=== PATIENT | male | born 1960 | race Caucasian/White ===

== ENCOUNTER → 2018-02-02 | Outpatient (CLI) | payer BC ==
[~2018-02-02] VITALS: Ht 180.3 cm; Wt 108.9 kg
[~2018-02-02] MED LIST: IBUPROFEN 800800 M1 PO; PROTONIX 20 MG20 M1 PO
--- NOTE | ~2018-02-02 | HPC ---
[facility] [place] [address] PAIN MANAGEMENT CONSULTATION Name: LATONIA ORTEGA Room #: REG [facility] Lasha#: [id number] Admission: 02/02/18 Attend Phys: Joce Anders MD Discharge: Date of : 58 Report #: [id number] THIS REPORT FOR: //name// CC: Jorge Anders DATE OF SERVICE: 02/02/2018 PRIMARY CARE PHYSICIAN: Jorge Moreira M.D. CHIEF COMPLAINT: Pain in the neck, arm, and wrist. FOLLOWUP HISTORY: The patient is a 57-year-old gentleman who has been referred to the Pain Clinic for evaluation of chronic pain, which has been going on for a number of years. Notes that this pain involves his hands, numbness and tingling. This often wakes him from sleep. He describes it as a stabbing pain in his hands. He describes it is 9/10 at this point. Notes that this causes problems with activities of daily living such as driving, holding the phone and finds that the right side is more problematic than the left. Notes that when he leans his head to the left that he can experience more pain and discomfort on the right side, sometimes appreciate a coolness radiating down into his hands. The pain often awakens him at night, a number of times. The patient states that he has been seen by orthopedic surgeon. There is some consideration of carpal tunnel syndrome and possibility of nerve entrapment up in his elbows. Describes pain in both hands, pain in his wrists and forearms, discomfort in his fingers, primarily in the fourth and fifth fingers, but also in his second and third fingers. He has experienced discomfort while driving, riding as well as reclining on his back. Notes the pain improves somewhat when he is standing, walking, changes his head from one side to the other. The patient states that he and his family members have Knvrymj-Bghkl-Uefts disease. He also has noted some episodes of left foot drop. States that if he sits with his leg in a mgpoww-db-yzsh position that he can experience worsening of the foot drop on the left side. May take weeks to months to improve and does note some loss of balance. Has some decreased hearing and wears hearing aids. ALLERGIES: No known drug allergies. CURRENT MEDICATIONS: Protonix 20 mg daily, ibuprofen 800 mg q. 8 hours p.r.n. MEDICATIONS USED IN THE PAST: Gabapentin 100 mg 2 tablets at bedtime, Valtrex 500 mg p.r.n. Prednisone 10 mg titration. PAST MEDICAL HISTORY: 1. Ioshjkt-Eiqnn-Rsbic - neuropathy. [facility] [address] [place] [address] PAIN MANAGEMENT CONSULTATION Name: LATONIA ORTEGA Room #: REG EZRA Colby#: [id number] Admission: 02/02/18 Attend Phys: Joce Anders MD Discharge: Date of : 58 Report #: [id number] 2. Hearing loss. 3. Depression. 4. Elevated liver enzymes. 5. Right and left wrist pain. 6. Cervical radiculopathy. 7. Genital herpes. PAST SURGICAL HISTORY: Cholecystectomy in 1979, sinus surgery in 1984. 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 He is working at this juncture. He is . FAMILY HISTORY: Cervical cancer, maternal grandmother, lung cancer, maternal grandmother. Kidney cancer, maternal aunt. Other family members with Ytesufr-Jyvyi-Aarox. REVIEW OF SYSTEMS: A 14-point review of systems: GENERAL: Good health, some weight changes, fatigue, weakness, wears glasses, decreased hearing, wears hearing aids, lightheadedness, numbness and tingling sensation, memory loss, confusion. PAIN CLINIC ASSESSMENT: The patient states he is not being treated for osteoarthritis or rheumatoid arthritis. Height 5 feet 11 inches, weight 240 pounds, BMI is 33. VITAL SIGNS: Blood pressure 130/78, pulse 60, respiratory rate 20, room air saturations 100%. Pain intensity 9/10. Fall risk. The patient has not fallen in the last 3 months. Does not need assistance with walking. Blood thinner. The patient is not on a blood thinner. History of hypertension. The patient is not being treated for hypertension. Opioid therapy greater than 6 weeks. The patient is not on opioid contract. Risk assessment tool. Functional assessment tool 36/70 showing moderate impact on activities of daily living from pain. Recreational drug use. Denies ever using recreational drugs. Tobacco: The patient denies smoking tobacco. Alcohol: The patient drinks about 5 alcoholic beverages per week. LABORATORY: EMG, motor nerve conduction/sensory conduction study indicates numbness and family history of Gslvoux-Sjhpo-Jvhxh disease. 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 As the [facility] [address] [place] [address] PAIN MANAGEMENT CONSULTATION Name: LATONIA ORTEGA Room #: REG CLDave Colby#: [id number] Admission: 02/02/18 Attend Phys: Joce Anders MD Discharge: Date of : 58 Report #: [id number] median nerve is out of portion to the ulnar, there is likely superimposed bilateral median neuropathy at the wrist (carpal tunnel syndrome), but the degree of abnormality is strictly from each cannot be out. There is also evidence of primary subacute bilateral C6 radiculopathies with the right side being somewhat more affected than the left. Examination of the cervical spine dated 05/12/2007 revealed alignment is within normal limits. There is mild loss of disk height at C5-C6 and C6-C7. Facet joints are maintained. No evidence of significant central spinal or neural foraminal stenosis. Soft tissue along the apices are unremarkable. IMPRESSION: Early/mild degenerative disk disease at C5/C6. MRI of the cervical spine dated 12/01/2017 revealed: 1. C5/C6, small posterior disk osteophyte complex. Mild uncinate and facet arthropathy. Minimal spinal canal stenosis. Mild right neural foraminal stenosis. 2. C6-C7, small posterior disk osteophyte complex. Mild facet and uncinate arthropathy. Minimal spinal canal stenosis. Mild left neural foraminal stenosis. 3. C7/T1, small posterior disk osteophyte complex. Mild facet and uncinate arthropathy. Minimal spinal canal stenosis. Mild bilateral neural foraminal stenosis. CT of the abdomen 06/2017, no CT evidence of pancreatic mass. No acute intraabdominal findings. PHYSICAL EXAMINATION: GENERAL: The patient is a well-developed white male, appears stated age. Orientation: The patient is alert and oriented x 3. Affect: The patient's affect is appropriate. Speech is fluent. The patient has some decreased auditory acuity and is wearing bilateral hearing aids. HEENT: Normocephalic, atraumatic, decreased auditory acuity. Sclerae nonicteric. Extraocular eye muscles intact. Mucous membranes are moist. NECK: Without adenopathy or bruits. Range of motion. Left lateral bending right lateral bending can cause some increased pain and discomfort in the contralateral arm. Left and right lateral rotation slightly limited, but not as problematic note some stiffness in the upper neck area. Cervical extension and flexion are not as problematic with pain radiating down into his arms. HEART: Regular rate, normal S1, S2, without murmurs. CHEST: Clear to auscultation without rales or rhonchi. ABDOMEN: Nontender, without organomegaly. MUSCULOSKELETAL: Without significant kyphosis, scoliosis or lordosis. EXTREMITIES: Upper extremity, the patient complains of pain and discomfort involving his right and left hand. Notes worsening of pain with radiation of pain down into his right hand when he tilts his head to the left. Complains of some numbness and tingling down in the area of his fingers involving the thumb, index and middle finger. Also complains of some discomfort in the area of his elbow as well as the ring and little finger on the right. Notes pain on the [facility] [address] [place] [address] PAIN MANAGEMENT CONSULTATION Name: LATONIA ORTEGA Room #: REG CLDave Colby#: [id number] Admission: 02/02/18 Attend Phys: Joce Anders MD Discharge: Date of : 58 Report #: [id number] left side in the ring and little finger as well as the index and middle finger. Note some pain in the area of his right wrist. 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 Capillary refill of approximately 1 second. Deep tendon reflexes are difficult to appreciate, left and right secondary to the patient's inability to comply. Lower extremity muscle strength judged to be 5/5 for the major muscle groups of the lower extremity. Difficult to appreciate patellar reflex and ankle reflex in the lower extremities. The patient is not having it now, but states that he has had in the past left foot drop. He is able to stand on his toes to rock on to his heels, but does find that he lose his balance quite easily. ASSESSMENT: 1. Findings consistent with cervical radiculopathy with EMG findings indicating subacute bilateral C6 radiculopathy. 2. Bilateral hand pain with symptomatology consistent with carpal tunnel syndrome. 3. History of Uhmgwbl-Urhyj-Frxqf disease. 4. History of depression, which is improved. RECOMMENDATIONS: We discussed treatment options with the patient. There were some findings consistent with cervical radiculopathy. At this juncture his pain etiology is somewhat overlapping. At this juncture, I think it would be reasonable to proceed with a cervical epidural steroid injection to see how much of his pain is secondary to cervical radiculopathy. A model was used to indicate the area of probable pathology. We discussed in detail the findings of his MRI. We will consult his insurance carrier. After which precertification is granted, we will proceed with a cervical epidural steroid injection. Risks and benefits of the procedure were explained. They include but are not limited to infection, increased muscle soreness, headache, bleeding, nerve damage, spinal headache. The patient elects to proceed. He will return to the Pain Clinic after precertification has been granted and undergo a cervical epidural steroid injection. We would like to thank you for letting us participate in his care. We hope he continues to improve. <ELECTRONICALLY SIGNED> By: Joce Anders MD 02/04/18 0815 [id number] Joce Anders MD /[facility]
[2018-02-02 08:12] VITALS: BP 130/78
== END ==
LOC: PAIN 06:56
DX: M79.603 Pain in arm, unspecified (principal); M25.539 Pain in unspecified wrist; M54.12 Radiculopathy, cervical region

== ENCOUNTER → 2018-02-04 | Outpatient (CLI) | payer BC ==
[~2018-02-04] VITALS: Ht 180.3 cm; Wt 112.1 kg
--- NOTE | ~2018-02-04 | HPC ---
[facility] [place] [address] PAIN MANAGEMENT CONSULTATION Name: LATONIA ORTEGA Room #: REG Dave Lasha#: [id number] Admission: 02/04/18 Attend Phys: Joce Anders MD Discharge: Date of : 58 Report #: [id number] THIS REPORT FOR: //name// CC: Jorge Anders DATE OF SERVICE: 02/04/2018 PRIMARY CARE PHYSICIAN: Jorge Moreira M.D. CHIEF COMPLAINT: Neck and arm pain on both sides. HISTORY OF PRESENT ILLNESS: The patient is a 57-year-old gentleman who has been seen in the Pain Clinic because of cervical radiculopathy. We have contacted his insurer which is [employer]. They have given him the ability to undergo a cervical epidural steroid injection today. He has followed up in the Pain Clinic for this service. As you may recall, he has pain and discomfort involving his hands with numbness and tingling. This often wakes him from his sleep. He describes a stabbing pain down into his hands, at this point to 9/10. He also has problems with activity of daily living such as driving, holding a phone and looking to his right side, which is more problematic than looking to the left. Pain often times awakens him at night. There is some consideration as to whether or not carpal tunnel surgery or other surgeries might be warranted. He has returned today for an epidural steroid injection and noticed efficacy on his pain control. ALLERGIES: No known drug allergies. CURRENT MEDICATIONS: Protonix 20 mg, Motrin 800 mg q. 8 hours p.r.n. PAIN CLINIC ASSESSMENT: The patient is not being treated for osteoarthritis or rheumatoid arthritis. Height 5 feet 11 inches, weight 247 pounds, BMI is 34. VITAL SIGNS: Blood pressure 125/79, pulse 60, respiratory rate 16, room air saturation is 98%. Pain Intensity 1. Fall risk. The patient has not fallen in the last 3 months. Blood thinners. The patient is not on a blood thinner. History of hypertension. The patient is not being treated for hypertension. Opioid therapy greater than 6 weeks. The patient is not on an opioid contract. Risk assessment tool. The patient is not on opioid medications. Functional assessment tool. Recreational drug use. The patient has never used recreational drugs. Tobacco. The patient has never smoked. Alcohol. The patient drinks 4-5 [place] [address] PAIN MANAGEMENT CONSULTATION Name: LATONIA ORTEGA [facility] [id number] Admission: 02/04/18 Attend Phys: Joce Anders MD Discharge: Date of : 58 Report #: [id number] PHYSICAL EXAMINATION: GENERAL: The patient is a well-developed, well-nourished white male. He appears his stated age. He is alert and oriented x 3. Affect is appropriate. Speech is fluent. He has some decreased auditory acuity and he is wearing bilateral hearing aids. HEENT: Normocephalic, atraumatic. Extraocular eye muscles intact. Sclerae nonicteric. Mucous membranes are moist. NECK: Without adenopathy or bruits. Range of motion somewhat limited, left lateral bending, right lateral bending cause some increased pain and discomfort in the contralateral arm. Left and right lateral rotation cause some slight limitation. Cervical extension and flexion are not as problematic with pain, which radiates down into his arms. HEART: Regular rate with normal S1, S2, without murmurs. CHEST: Clear to auscultation without rales or rhonchi. ABDOMEN: Nontender, without organomegaly. MUSCULOSKELETAL: Without significant kyphosis, scoliosis or lordosis. EXTREMITIES: Upper extremities, the patient complains of pain and discomfort involving the right and left hand. Notes worsening of the pain with radiation down into his right hand when he tilts his head to the left. Complains of some numbness and tingling down into the areas of his fingers involving the thumb, index and middle finger. There is also complains of discomfort in the area of his elbow as well as in the area of the ring and little finger on the right hand. The patient has some pain and discomfort in his right wrist. Deep tendon reflexes are difficult to appreciate secondary to the patient's inability to comply during the procedure. IMPRESSION: 1. Cervical findings consistent with cervical radiculopathy and EMG findings indicating subacute bilateral C6 radiculopathy. 2. Bilateral hand pain with symptomatology consistent with carpal tunnel syndrome. 3. History of Fbmnwlk-Xtfmn-Pryvn disease. 4. History of depression, which has improved. RECOMMENDATIONS: We discussed treatment option with the patient. Risks and benefits of a cervical epidural steroid injection were again reviewed. Possible complication of the procedure were discussed. They include but are not limited to infection, increased muscle soreness, headache, bleeding, paresis, spinal headache and the patient elects to proceed. PROCEDURE NOTE: The patient was placed in the prone position. Fluoroscopy was used to identify the C7-T1 interspace using fluoroscopy with the AP view as well as a lateral view. This area had been sterilely prepped with Betadine. A 0.25% bupivacaine was infiltrated into this area. A total of 120 mg triamcinolone was injected. The patient tolerated the procedure well. There were no [facility] [place] [address] PAIN MANAGEMENT CONSULTATION Name: LATONIA ORTEGA Room #: REG EZRA Colby#: [id number] Admission: 02/04/18 Attend Phys: Joce Anders MD Discharge: Date of : 58 Report #: [id number] complications. He remained in the Pain Clinic for an appropriate amount of time. Pain was between 0 and 1 at the time of discharge. Total of 17 seconds fluoroscopy time was used. The patient will follow up in the future as needed. We would like to thank you for letting us participate in his care. We hope he continues to improve. By: [id number] Joce Anders MD /[facility]
[2018-02-04 09:12] VITALS: BP 125/79
== END | disposition home or self-care (01) ==
LOC: PAIN 07:05
DX: M54.12 Radiculopathy, cervical region (principal); M79.642 Pain in left hand; M79.641 Pain in right hand; Z86.69 Personal history of other diseases of the nervous system and sense organs; Z79.899 Other long term (current) drug therapy

== ENCOUNTER → 2018-03-30 | Outpatient (CLI) | payer BC ==
[~2018-03-30] VITALS: Ht 180.3 cm; Wt 112.4 kg
[~2018-03-30] MED LIST changes: +NEURONTIN 300300 M1 PO
--- NOTE | ~2018-03-30 | HPC ---
[facility] [place] [address] PAIN MANAGEMENT CONSULTATION Name: SHANNONLATONIA WHATLEY Room #: REG [facility] Rylie.#: [id number] Admission: 03/30/18 Attend Phys: Joce Anders MD Discharge: Date of : 58 Report #: [id number] THIS REPORT FOR: //name// CC: Jorge Anders DATE OF SERVICE: 03/30/2018 FOLLOWUP COMPLAINT: Pain was improved significantly after the last injection. I have noticed a return of some aching down in my hands and would like to proceed with another. FOLLOWUP HISTORY: The patient is a 58-year-old gentleman who has been seen in the pain clinic because of cervical radiculopathy. He has had pain and discomfort, which has radiated down into his hands involving both hands. After the last epidural steroid injection. He noticed pretty much resolution of pain and discomfort. At this juncture, he has noted some recurrence of pain with pain down into the area of his fingers bilaterally with numbness and tingling. He notes also that he is waking from sleep. He is not waking near as much as it was initially. Initially, he woke about 3 times during the course of night. He now wakes once, but is noted some pain similar to what he was experiencing. Rates his pain as a 7/10 at this juncture. He has returned today with a hope of undergoing a cervical epidural steroid injection to help quell his pain. He noticed that the last injection helped significantly. ALLERGIES: No known drug allergies. CURRENT MEDICATIONS: Protonix, Mobic. PAIN CLINIC ASSESSMENT: 1. History of osteoarthritis in the neck with some pain with radiation down into his arms. 2. The patient is not being treated for rheumatoid arthritis. 3. Height 5 feet 11 inches, weight 247 pounds, BMI is 34. 4. Vital Signs: Blood pressure 129/84, pulse 51, respiratory rate 16, room air saturation 100. 5. Pain intensity 04/26. 6. Fall risk. The patient has not fallen in the last 3 months. 7. Blood thinner. The patient is not on a blood thinning medication. 8. History of hypertension. The patient is not being treated for hypertension. 9. Opioid use greater than 6 weeks. The patient is not on opioid regimen. 10. Risk assessment tool, low risk for opioid use. 11. Functional assessment tool 0907 showing significant discomfort secondary to pain and discomfort. 12. Recreational drug use. The patient denies use of recreational drugs. [address] [address] PAIN MANAGEMENT CONSULTATION Name: LATONIA ORTEGA Room #: REG [facility]#: [id number] Admission: 03/30/18 Attend Phys: Joce Anders MD Discharge: Date of : 58 Report #: [id number] 13. Tobacco: The patient denies use of tobacco. 14. Alcohol: The patient drinks about 2 alcoholic beverages weekly. PHYSICAL EXAMINATION: GENERAL: The patient is a well-developed, well-nourished white male. He appears his stated age. He is alert and oriented x 3. His affect is appropriate. Speech is fluent. Has some decreased auditory acuity and he is wearing bilateral hearing aids. HEENT: Normocephalic, atraumatic. Extraocular eye muscles intact. Sclerae nonicteric. Mucous membranes are moist. Hearing aids are in place. NECK: Without adenopathy or bruits. Range of motion somewhat limited. Notes some pain and discomfort radiating down into his hands bilaterally. Cervical extension and cervical flexion not problematic. HEART: Regular rate, normal S1 without murmurs. CHEST: Clear to auscultation without rales or rhonchi. ABDOMEN: Nontender, without organomegaly. MUSCULOSKELETAL: Without significant kyphosis, scoliosis of the lower doses. EXTREMITIES: Upper extremities, the patient has some complaint of pain and discomfort down into in right and his left hand. Notes some increased discomfort when he tilts his head to the left. Has some increased pain and discomfort in his fingers involving his index finger and thumb. Has some discomfort in the area of his wrist. IMPRESSION: 1. Cervical radiculopathy, improved significantly after the epidural steroid injection in the cervical area at the last visit. 2. Bilateral pain, symptoms consistent with carpal tunnel syndrome, but improved after the cervical epidural steroid injection. 3. History of Lhhkyxv-Enyce-Iffkd disease. 4. History of depression, which is stable. RECOMMENDATIONS: We discussed treatment options with the patient. Risks and benefits of a cervical epidural steroid injection were again reviewed. The patient states that he has been taking more medication. Overall, he feels that his mood, and physical continued to improve. He would like to proceed with another cervical epidural steroid injection. He had no complication from the last injection. We discussed the possible complication of the procedure, which were similar to the last. They include but are not limited to infection, increased muscle soreness, headache, bleeding,,, paralysis, worsening of pain, no improvement in pain. The patient elects to proceed. PROCEDURE NOTE: The patient was taken to the procedure area. He was helped on the examination table. He is placed in the prone position. His neck was sterilely prepped with a Betadine solution and allowed to dry. Fluoroscopy using an anterior, posterior as well as a lateral approach was used to identify the C7-T1 interspace. This area had been sterilely prepped with Betadine and [facility] [address] [place] [address] PAIN MANAGEMENT CONSULTATION Name: LATONIA ORTEGA Room #: REG CLDave Rylie.#: [id number] Admission: 03/30/18 Attend Phys: Joce Anders MD Discharge: Date of : 58 Report #: [id number] infiltrated with 0.25% bupivacaine. A midline approach was used. A 17-gauge Tuohy with loss of resistance technique was used to gain access to the epidural space. There was no gain access to the epidural space. A total of 120 mg triamcinolone was injected. The patient tolerated the procedure well. There were no complications. He remained in the pain clinic for an appropriate amount of time. A total of 9 seconds fluoroscopy time was used. The patient's pain decreased to 0 at the time of discharge. He will follow up in the future as needed. We would like to thank you for letting us participate in his care. We hope he continues to improve. <ELECTRONICALLY SIGNED> By: Joce Anders MD 04/07/18 0936 [id number] Joce Anders MD /[facility]
[2018-03-30 09:49] VITALS: BP 129/84
== END | disposition home or self-care (01) ==
LOC: PAIN 07:11
DX: M54.12 Radiculopathy, cervical region (principal); G89.29 Other chronic pain; Z86.59 Personal history of other mental and behavioral disorders; Z87.39 Personal history of other diseases of the musculoskeletal system and connective tissue; Z98.890 Other specified postprocedural states; Z79.899 Other long term (current) drug therapy

== ENCOUNTER → 2018-09-21 | Outpatient (CLI) | payer BC ==
[~2018-09-21] VITALS: Ht 180.3 cm; Wt 103.6 kg
[~2018-09-21] MED LIST changes: +AMITRIPTYLINE H10 M1 PO; +FLUARIX QU60 MCG/0.6 IM; -PROTONIX 20 MG20 M1 PO; +PROTONIX40 M1 PO
[2018-09-21 08:16] VITALS: BP 119/81
== END | disposition home or self-care (01) ==
LOC: PAIN 07:45
DX: M54.12 Radiculopathy, cervical region (principal); Z79.899 Other long term (current) drug therapy; Z98.890 Other specified postprocedural states

== ENCOUNTER → 2019-04-12 | Outpatient (CLI) | payer BC ==
[~2019-04-12] VITALS: Ht 180.3 cm; Wt 104.8 kg
[2019-04-12 09:25] VITALS: BP 119/74
--- NOTE | 2019-04-12 09:30 | NUR ---
Pain Clinic Assessment: 1. History of Osteoarthritis: Not Applicable History of Rheumatoid Arthritis: Not Applicable 2. Height: 5 ft. 11 in. 180.3 cm. Weight: 231.0 lb. oz. 104.781 kg. Patient's BMI: 32.2 3. Vital Signs: BP: 119/74 Pulse: 52 Resp: 18 Temp: 02 Sat: 100 ECG Mon: 4. Pain Intensity: 4 5. Fall Risk: Dizziness: N Needs help standing or walking: N Fallen in the last 3 months: N Fall risk comments: 6. Patient on Blood Thinner: None 7. History of Hypertension: N 8. Opioid Therapy greater than 6 weeks: N Opiate Contract Signed: 9. Risk Assessment Tool Provided: low-0 10. Functional Assessment Tool: 11. Recreational Drug Use: Never Drug Type: Tobacco Use: Never Smoker Tobacco Type: Amount or Packs/day: How Many Years: Alcohol Use: Yes Frequency: Quant:
== END | disposition home or self-care (01) ==
LOC: PAIN 06:49
DX: M54.12 Radiculopathy, cervical region (principal); G89.29 Other chronic pain

== ENCOUNTER → 2019-10-04 | Outpatient (CLI) | payer BC ==
[~2019-10-04] VITALS: Ht 180.3 cm; Wt 105.5 kg
[~2019-10-04] MED LIST changes: +[UNRECOGNIZED DRUG - REMARK]
[2019-10-04 08:29] VITALS: BP 112/72
--- NOTE | 2019-10-04 08:42 | NUR ---
Pain Clinic Assessment: 1. History of Osteoarthritis: NECK History of Rheumatoid Arthritis: Not Applicable 2. Height: 5 ft. 11 in. 180.3 cm. Weight: 232.6 lb. oz. 105.507 kg. Patient's BMI: 32.5 3. Vital Signs: BP: 112/72 Pulse: 66 Resp: 14 Temp: 02 Sat: 100 ECG Mon: 4. Pain Intensity: 4-5-DAYTIME, 8-9-NIGHT 5. Fall Risk: Dizziness: N Needs help standing or walking: N Fallen in the last 3 months: N Fall risk comments: 6. Patient on Blood Thinner: None 7. History of Hypertension: N 8. Opioid Therapy greater than 6 weeks: N Opiate Contract Signed: 9. Risk Assessment Tool Provided: low-0 10. Functional Assessment Tool: 11. Recreational Drug Use: Never Drug Type: Tobacco Use: Never Smoker Tobacco Type: Amount or Packs/day: How Many Years: Alcohol Use: Yes Frequency: Weekly Quant: 1-2
--- NOTE | 2019-10-17 14:24 | HPC ---
[facility] [address] [place] [address] PAIN MANAGEMENT CONSULTATION Name: LATONIA ORTEGA [id number] Admission: 10/04/19 Attend Phys: Joce Anders MD Discharge: Date of : 58 Report #: [id number] THIS REPORT FOR: //name// CC: Jorge Anders DATE OF SERVICE: 10/04/2019 CHIEF COMPLAINT: "Increasing pain over the last month. It is radiating down into both hands. Sometimes it wakes me up at night." HISTORY: The patient is a 59-year-old gentleman who has been seen in the pain clinic because of cervical radiculopathy. He has undergone cervical epidural steroid injections. These have proven beneficial for him in the past. At this point, he has returned today with a note of increased pain in the hands. Rates it as an 8-9 at night. It is a 4-5 in the daytime. He would like to proceed with another epidural steroid injection given that it has provided benefit in the past. 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 This type of work can exacerbate his pain. He does work for [employer]. ALLERGIES: No known drug allergies. CURRENT MEDICATIONS: Protonix 40 mg, ibuprofen 800 mg t.i.d. PAIN CLINIC ASSESSMENT AND PQRS: 1. The patient has some osteoarthritic changes in his neck. He is experiencing pain that is radiating down into his arms. He is not being treated for rheumatoid arthritis. 2. Height 5 feet 11 inches, weight 232 pounds, BMI is 32. 3. Vital signs: Blood pressure 112/72, pulse 66, respiratory rate 14, room air saturation is 100%. 4. Pain intensity 4-5 in the daytime, 8-9/10 at night. 5. Fall risk. The patient has not fallen in the last 3 months. 6. Blood thinner. The patient is not on a blood thinning medication. 7. Hypertension. The patient is not being treated for hypertension. 8. Opioids greater than 6 weeks. The patient is not on an opioid regimen on a regular basis. 9. Risk assessment tool, low for opioid use. 10. Functional assessment tool 36/70. 11. Recreational drug use: The patient denies. 12. Tobacco: The patient has never smoked. 13. Alcohol: The patient drinks about 1-2 alcoholic beverages weekly. PHYSICAL EXAMINATION: GENERAL: The patient is a well-developed, well-nourished white male. Appears his stated age. He is alert and oriented x 3. [place] [address] PAIN MANAGEMENT CONSULTATION Name: LATONIA ORTEGA Room #: REG [facility] [place]#: [id number] Admission: 10/04/19 Attend Phys: Joce Anders MD Discharge: Date of : 58 Report #: [id number] Speech is fluent. HEENT: Normocephalic, atraumatic. Extraocular eye muscles intact. Sclerae nonicteric. Mucous membranes are moist. NECK: Without adenopathy or JVD. The patient has some pain and discomfort in his neck. He has pain that radiates down into his hands on both sides, the forearms and wrists are involved. Right side is most problematic. Left side still is involved. CHEST: Clear to auscultation. ABDOMEN: Nontender. MUSCULOSKELETAL: The patient without significant scoliosis, kyphosis or lordosis. Lower extremity muscle strength is judged to be 5/5 for the major muscle groups. Upper extremity 5-/5 for the major muscle groups in the upper extremity. IMPRESSION: 1. History of cervical radiculopathy with return of pain. Improvement in pain greater than 50% with epidural steroid injections in the past. 2. Bilateral pain in left and right arm. He has been evaluating for possibility of carpal tunnel syndrome. 3. History of Rfmriii-Iaqxj-Nynru disease. 4. History of depression, stable. RECOMMENDATIONS: We discussed treatment options with the patient. Risks and benefits of an epidural steroid injection were discussed. They include but are not limited to infection, worsening of pain, no improvement in pain, increased muscle soreness and the patient elects to proceed. PROCEDURE NOTE: The patient was taken to the procedure area. Questions were answered. He was then assisted in getting on the examination table. A pillow was placed under the shoulder area to improve positioning. Fluoroscopy using anterior, posterior as well as lateral viewing were implemented. The patient's neck was sterilely prepped with a Betadine solution and allowed to dry. A 0.25% bupivacaine was infiltrated to numb the area at the C7-T1 interspace. This area was then penetrated using a 17-gauge Tuohy with loss of resistance technique. There was no CSF, heme or paresthesia. Total of 120 mg of triamcinolone was injected at this area. The patient tolerated the procedure well. He remained in the pain clinic for an appropriate amount of time. Total of 9 seconds fluoroscopy time was used. The patient's pain decreased to 2-3 at the time of discharge. He will call us if he has any problems. We would like to thank you for letting us participate in his care. We hope he continues to improve. <ELECTRONICALLY SIGNED> By: Joce Anders MD 10/17/19 [id number] MD ANDREA Garner
== END | disposition home or self-care (01) ==
LOC: PAIN 06:50
DX: M54.12 Radiculopathy, cervical region (principal); G89.29 Other chronic pain; M79.602 Pain in left arm; M79.601 Pain in right arm; Z98.890 Other specified postprocedural states; Z79.899 Other long term (current) drug therapy

== ENCOUNTER → 2021-01-15 | Outpatient (CLI) | payer BC ==
[~2021-01-15] VITALS: Ht 180.3 cm; Wt 103.7 kg
[~2021-01-15] MED LIST changes: +BENADRYL25 MG PO; +TYLENOL EXTRA500 MG PO; +TYLENOL PM EX-1 EACH PO
[2021-01-15 09:38] VITALS: BP 131/84
--- NOTE | 2021-01-15 09:40 | NUR ---
Pain Clinic Assessment: 1. History of Osteoarthritis: NECK History of Rheumatoid Arthritis: Not Applicable 2. Height: 5 ft. 11 in. 180.3 cm. Weight: 228.6 lb. oz. 103.692 kg. Patient's BMI: 31.9 3. Vital Signs: BP: 131/84 Pulse: 54 Resp: 16 Temp: 02 Sat: 100 ECG Mon: 4. Pain Intensity: 1 TODAY; 7 TO 8 AT NITE 5. Fall Risk: Dizziness: N Needs help standing or walking: N Fallen in the last 3 months: Y Fall risk comments: MISTEPPED 2 MONTHS AGO AND FELL; DENIES INCREASED PAIN 6. Patient on Blood Thinner: None 7. History of Hypertension: N 8. Opioid Therapy greater than 6 weeks: N Opiate Contract Signed: 9. Risk Assessment Tool Provided: low-0 10. Functional Assessment Tool: 36 11. Recreational Drug Use: Never Drug Type: Tobacco Use: Never Smoker Tobacco Type: Amount or Packs/day: How Many Years: Alcohol Use: Yes Frequency: Weekly Quant: 1
== END ==
LOC: PAIN 06:51
PROVIDERS: ATTEND Anesthesiology Pain Medicine
DX: M79.641 Pain in right hand (principal); M79.642 Pain in left hand; F32.9 Major depressive disorder, single episode, unspecified; G60.0 Hereditary motor and sensory neuropathy; Z87.39 Personal history of other diseases of the musculoskeletal system and connective tissue

== ENCOUNTER → 2021-01-17 | Outpatient (CLI) | payer BC ==
[~2021-01-17] VITALS: Ht 180.3 cm; Wt 102.8 kg
[2021-01-17 12:53] VITALS: BP 110/77
--- NOTE | 2021-01-17 13:03 | NUR ---
Pain Clinic Assessment: 1. History of Osteoarthritis: NECK History of Rheumatoid Arthritis: Not Applicable 2. Height: 5 ft. 11 in. 180.3 cm. Weight: 226.6 lb. oz. 102.785 kg. Patient's BMI: 31.6 3. Vital Signs: BP: 110/77 Pulse: 73 Resp: 16 Temp: 02 Sat: 100 ECG Mon: 4. Pain Intensity: 1 TODAY; 7 TO 8 AT NITE 5. Fall Risk: Dizziness: N Needs help standing or walking: N Fallen in the last 3 months: N Fall risk comments: MISTEPPED 2 MONTHS AGO AND FELL; DENIES INCREASED PAIN 6. Patient on Blood Thinner: None 7. History of Hypertension: N 8. Opioid Therapy greater than 6 weeks: N Opiate Contract Signed: 9. Risk Assessment Tool Provided: low-0 10. Functional Assessment Tool: 36 11. Recreational Drug Use: Never Drug Type: Tobacco Use: Never Smoker Tobacco Type: Amount or Packs/day: How Many Years: Alcohol Use: Yes Frequency: Monthly Quant: 1
== END | disposition home or self-care (01) ==
LOC: PAIN 06:50
PROVIDERS: ATTEND Anesthesiology Pain Medicine
DX: M54.12 Radiculopathy, cervical region (principal); G89.29 Other chronic pain; Z98.890 Other specified postprocedural states; Z79.899 Other long term (current) drug therapy; Z90.49 Acquired absence of other specified parts of digestive tract